=== PATIENT | female | born 1950 ===

== ENCOUNTER 2018-04-08 11:10 | Inpatient (IN) | payer OTHER ==
[~2018-04-08] VITALS: Ht 152.4 cm; Wt 58.1 kg
[2018-04-08] MEDS ORDERED: PEPCID20 MG PO (11:35)
[2018-04-08] MEDS ORDERED: LOSARTAN POTASS25 MG PO (11:35)
[2018-04-08] MEDS ORDERED: TRAMADOL HCL50 MG PO (11:35)
[2018-04-08] MEDS ORDERED: SYNTHROID75 MCG PO (11:35)
[2018-04-08] MEDS ORDERED: XANAX XR0.5 MG PO (11:36)
[2018-04-08] MEDS ORDERED: CELEBREX200MG PO (11:37)
[2018-04-08] MEDS ORDERED: B-12500 MCG PO (11:37)
[2018-04-08] MEDS ORDERED: VITAMIN D10000 UNIT PO (11:37)
[2018-04-08] MEDS ORDERED: OMEGA 3 1,0001 EACH PO (11:37)
[2018-04-16] MEDS ORDERED: AMOX-CLAV 875-1 EACH PO (12:02)
[2018-04-16] MEDS ORDERED: DOCUSATE SODIU100 MG PO (12:02)
[2018-04-16] MEDS ORDERED: GABAPENTIN800 MG PO (12:02)
[2018-04-16] MEDS ORDERED: PERCOCET 5-3251 EACH PO (12:04)
[2018-04-16] MEDS ORDERED: CLONAZEPAM1 MG PO (12:04)
== END 2018-04-16 16:23 | DRG 455 ==
LOC: PED 04-15 05:35 → O/R 04-15 05:35 → SURG 04-15 12:30 → PED 04-15 17:34
PROVIDERS: Orthopaedic Surgery Orthopaedic Surgery of the Spine
PROC: 0SG1071 Fusion of 2 or more Lumbar Vertebral Joints with Autologous Tissue Substitute, Posterior Approach, Posterior Column, Open Approach (ICD-10-PCS; 2018-04-15)
PROC: 0ST20ZZ Resection of Lumbar Vertebral Disc, Open Approach (ICD-10-PCS; 2018-04-15)
PROC: 0SG10AJ Fusion of 2 or more Lumbar Vertebral Joints with Interbody Fusion Device, Posterior Approach, Anterior Column, Open Approach (ICD-10-PCS; 2018-04-15)
PROC: 07DS3ZZ Extraction of Vertebral Bone Marrow, Percutaneous Approach (ICD-10-PCS; 2018-04-15)
PROC: 0SG10A0 Fusion of 2 or more Lumbar Vertebral Joints with Interbody Fusion Device, Anterior Approach, Anterior Column, Open Approach (ICD-10-PCS; principal; 2018-04-15 16:45)
DX: M48.061 Spinal stenosis, lumbar region without neurogenic claudication (principal); M41.56 Other secondary scoliosis, lumbar region; M51.16 Intervertebral disc disorders with radiculopathy, lumbar region; M47.26 Other spondylosis with radiculopathy, lumbar region; I10 Essential (primary) hypertension; E03.8 Other specified hypothyroidism